=== PATIENT | female | born 1950 | race Caucasian/White ===

== ENCOUNTER 2025-04-23 10:28 | Emergency (ER) | payer MEDICARE, SELFPAY ==
--- NOTE | 2025-04-23 | ECG_ITS ---
Test Reason : FALL Blood Pressure : */* mmHG Vent. Rate : 74 BPM Atrial Rate : 74 BPM P-R Int : 158 ms QRS Dur : 82 ms QT Int : 398 ms P-R-T Axes : 66 63 70 degrees QTcB Int : 441 ms Normal sinus rhythm Septal infarct , age undetermined Abnormal ECG No previous ECGs available Referred By: Generic ED Physician Electronically Signed By: JANEEN LARKIN MD
--- NOTE | ~2025-04-23 | CT_ITS ---
EXAMINATION: CT CHEST WITH IV CONTRAST, CT ABDOMEN PELVIS WITH IV CONTRAST INDICATION: fall with chest trama, abdominal and back pain COMPARISON: There are no prior studies available for comparison.. TECHNIQUE: CT scan of the chest, abdomen and pelvis was performed following administration of 85 mL Omnipaque 350 using standard departmental protocol. Coronal and sagittal reformatted images were generated and reviewed. Oral contrast material was not administered at the request of the referring physician. This CT exam was performed with one or more of the following dose reduction techniques: automated exposure control, adjustment of the mA and/or kV according to patient size, use of iterative reconstruction technique. DLP: 475 mGy-cm CHEST: THYROID: The thyroid is unremarkable. LUNGS: There is mild dependent subsegmental atelectasis at the lung bases. The lungs are otherwise clear. MEDIASTINUM: There is no mediastinal lymphadenopathy. DAYANA: There is no hilar lymphadenopathy. CARDIOVASCULATURE: The heart is normal in size. There is no pericardial effusion. The thoracic aorta is normal in caliber. DEGREE OF CORONARY CALCIFICATION: not evaluable, due to dense contrast in the coronary arteries. PLEURA: There is no pleural effusion. No pneumothorax. MAIN AIRWAYS: The mainstem bronchi and proximal branches are patent. AXILLA: There is no axillary lymphadenopathy. SOFT TISSUES: Unremarkable. BONES: There are mild compression deformities involving T3 and T4 bodies, indeterminate age. ABDOMEN: LIVER: The liver is normal in size and contour. There is a 1.9 cm cyst in the left lobe. The hepatic and portal veins are patent. GALLBLADDER / BILE DUCTS: The gallbladder is unremarkable. There is no intra or extrahepatic biliary ductal dilatation. SPLEEN: The spleen is normal in size. No focal splenic lesion is identified. PANCREAS: The pancreas is unremarkable in appearance. ADRENAL GLANDS: Within normal limits. KIDNEYS/RETROPERITONEUM: No renal calculi are identified. There is no hydronephrosis. No renal masses are identified. LYMPH NODES: No abdominal or pelvic lymphadenopathy. VASCULATURE: MESENTERY/PERITONEUM: No free fluid. No masses. There is no free intraperitoneal gas. STOMACH: The stomach is collapsed, limiting evaluation. SMALL BOWEL: The small bowel is normal in caliber. COLON: There is a very large amount of stool throughout the colon. APPENDIX: The appendix is not seen, however no inflammatory changes are seen adjacent to the cecum. URINARY BLADDER/PELVIC ORGANS: The urinary bladder is unremarkable. The uterus is unremarkable. BONES / SOFT TISSUES: There are mild compression deformities of T11 and T12 which appear chronic. There is grade I spondylolisthesis of L4 on L5. CT/CT abdomen pelvis w IV con IMPRESSION: 1. No evidence of traumatic visceral injury to the chest, abdomen, or pelvis. 2. Mild compression deformities of T3 and T4, of indeterminate age. 3. Mild compression deformities of T11 and T12 which appear chronic. 4. Very large amount of stool throughout the colon. Electronically signed by: Asaf Chau MD 04/23/2025 01:00 PM EDT
--- NOTE | ~2025-04-23 | CT_ITS ---
EXAMINATION: CT HEAD WITHOUT CONTRAST CLINICAL INFORMATION: Head and neck pain after falling onto the head COMPARISON: None available. TECHNIQUE: Contiguous axial imaging was performed from the skull base to vertex without intravenous administration of contrast. This CT examination was performed using dose optimization techniques as appropriate, variously including the following: *Automated exposure control *Adjustment of mA and/or kV according to patient size (this includes techniques or standardized protocols for targeted exams where dose is matched to indication/reason for exam; i.e. extremities or head) *Use of iterative reconstruction technique DLP: 616 mGY*cm FINDINGS: There is no acute ischemic change. There is no intracranial hemorrhage. There is no mass-effect or midline shift. Basal cisterns and ventricles are within normal limits for age/cerebral volume. Orbits are symmetrical and unremarkable. Paranasal sinuses and mastoid air cells are pneumatized. There are no bony abnormalities. CT/CT head/brain wo IV con IMPRESSION: No acute intracranial abnormality. Electronically signed by: Fran Scanlon MD 04/23/2025 12:55 PM EDT
--- NOTE | ~2025-04-23 | CT_ITS ---
EXAMINATION: CT CERVICAL SPINE WITHOUT CONTRAST CLINICAL INFORMATION: Head and neck pain after falling onto the head COMPARISON: None available. TECHNIQUE: Axial imaging was performed from the base of the skull through T2 without IV contrast. Coronal and sagittal reformatted images were generated from the original axial data set. ALARA: The examination used one or more of the following radiation dose reduction techniques: Automated exposure control, iterative reconstruction, and/or adjustment of mA and/or KV. DLP: 184 mGY*cm FINDINGS: There is straightening of cervical lordosis. There is multilevel disc space narrowing with degenerative endplate irregularity with uncovertebral and facet osteophytes and sclerosis. There is nonsegmentation of left C2-3 facet joint. There is lucency through the posterior aspect of the transverse foramen on the right at C2 with sclerotic margins consistent with a chronic finding. Soft tissues and lung apexes are unremarkable. CT/CT cervical spine wo IV con IMPRESSION: No acute fracture. Degenerative disc disease with uncovertebral and facet osteoarthritis is most advanced at C4-5, C5-6, and C6-7. There is also straightening of cervical lordosis. Electronically signed by: Fran Scanlon MD 04/23/2025 01:00 PM EDT RP
[2025-04-23 10:38] VITALS: BP 158/100; PULSE 99; O2SAT 99
[2025-04-23 10:42] VITALS: BP 161/85; PULSE 89; RESP 14; TEMP 37.1; O2SAT 99; BMI 19.4
[2025-04-23 11:37] LABS: MANUAL DIFF FLAG NO
[2025-04-23 11:40] LABS: Hematocrit 39.6 % (37.0-47.0); Hemoglobin 13.6 g/dl (12.0-16.0); Imm Gran Abs Auto 0.06 X10*3/uL (0.00-0.03); Imm Gran Pct Auto 0.9 % (0.0-0.4); Lymphocytes Absolute Auto 1.1 X10*3/uL (1.2-4.9); Mean Corpuscular HGB Conc 34.3 g/dl (31.0-35.0); Mean Corpuscular Hemoglobin 29.4 pg (27.0-33.0); Mean Corpuscular Volume 85.5 fL (80.0-98.0); NRBC Abs Auto 0.000 X10*3/uL (0.0-0.012); NRBC Pct Auto 0.0 /100WBC (0.0-0.2); Platelet Count 312 X10*3/uL (160-400); Red Blood Count 4.63 X10*6/uL (4.20-5.50); White Blood Count 6.7 X10*3/uL (4.8-10.8)
--- NOTE | 2025-04-23 11:41 | ED.GENADULT ---
HPI - General Adult General Chief complaint: Fall Stated complaint: FALL,HIT HEAD,DIZZY,BACK PAIN PER EMS Time Seen by Provider: 04/23/25 10:52 Source: patient Mode of arrival: ambulatory Limitations: no limitations History of Present Illness ED Provider: ANNETTE Torres HPI narrative: 74-year-old female very active presents to the emergency department with complaints of neck, back, head pain patient reports she was doing yoga and got an episode of vertigo, she lost balance and landed right on her head. She thinks she fell to the side, when she fell she heard a loud crack in her neck and upper back. She also reports she has been having some chest discomfort and shortness of breath since this happened. She tells me she just does not feel right. She is very anxious about this. Denies fevers, chills, nausea, vomiting, abdominal pain, vision changes, dizziness and weakness no upper extremity clumsiness, numbness or tingling. Related Data Previous Rx's ?Medication ?Instructions ?Recorded acetaminophen 325 mg tablet 650 mg (2 x 325 mg) PO Q6H PRN 04/23/25 (Tylenol) fever or pain #30 tabs lidocaine 5 % topical patch 1 patch topical DAILY PRN pain #15 04/23/25 ea Allergies Allergy/AdvReac Type Severity Reaction Status Date / Time codeine AdvReac Mild Nausea Verified 04/23/25 10:46 Review of Systems Review of Systems: Yes all other systems are reviewed and are negative [facility] Past Medical History Attestation statement: The following information was validated with the patient. Source: old records reviewed and nursing notes reviewed Social History Social History Advance Directives: Yes Advance Directives Information Provided: Yes Advance Directives on File: No Physical Exam ED Exam Exam: Appearance: Alert.? Oriented X3.? No acute distress.? Head: Normocephalic, atraumatic, no step-offs or deformities Eyes: Pupils equal, round and reactive to light.? ENT: Pharynx normal.? Neck: Normal inspection.? Patient in cervical collar out of precaution. CVS: Normal heart rate and rhythm.? Pulses normal.? Respiratory: No respiratory distress.? Breath sounds normal.? Abdomen: Soft and nontender.? Skin: Skin warm and dry.? Normal skin color.? Normal skin turgor.? Extremities: No lower extremity edema.? No calf ttp. 5/5 strength to bilateral upper and lower extremities Back: No midline tenderness, no C-spine tenderness, full range of motion, no CVA tenderness bilaterally Neuro: Oriented X 3.? No motor deficit.? No sensory deficit. CN 2-12 intact Vital Signs: Vital Signs - 24 hr 04/23/25 10:42 04/23/25 14:05 Temperature 98.8 F Pulse Rate 89 92 Respiratory Rate 14 12 Blood Pressure 161/85 H 158/95 H Pulse Oximetry 99 99 Oxygen Delivery Method Room Air Room Air BMI result Body Mass Index 19.4 vss Course Reevaluation(s) Reevaluation #1: CBC unremarkable. Chemistry with no acute findings needing intervention. Troponin negative, EKG nonischemic. Patient's vertigo is being treated in the outpatient setting, she has refused meclizine and does not want any today. I do not suspect this is posterior infarct. Time: 15:34 Reevaluation #2: Patient's CT head no acute intracranial abnormality. CT cervical spine degenerative disease with facet joint arthritis. Nose advanced C4-C5, C5-C6 and C6-C7. No acute fracture. CT of the chest with mild compression deformities of T3 and T4 of indeterminate age likely acute. Mild compression of T11 and T12. No evidence of traumatic visceral injury to chest, abdomen or pelvis. Patient to be discharged home with Tylenol and Lidoderm patches. Will give her information on Interventional Radiology/Radiology for possible intervention such as kyphoplasty as these are acute in nature. No focal neurological deficits. Educated patient on diagnosis and treatment plan, answered all question, patient verbalizes understanding. At this time patient will be discharged home, advised to return with new or worsening symptoms. Educated on worrisome signs and symptoms and when to return. At this time I feel comfortable discharge home. Time: 15:34 Medical Decision Making Medical Decision Making MDM Narrative: 74-year-old female presents with fall status post bending forward and feeling like she had vertigo. No loss of consciousness. Not on blood thinners however reporting significant neck and upper back pain in the thoracic region. Reports she heard a crack. On exam patient in the neck immobilizer. No focal neurological deficits. Lung sounds clear. Regular rate and rhythm. Abdomen soft nontender nondistended. History and physical exam concerning for possible cervical spine or thoracic compression fractures. Unlikely intracranial hemorrhage, stroke, posterior stroke. Patient is being treated for vertigo outpatient this likely is the reason why patient fell, BPPV. Cerebellar infarct unlikely. Neurological function intact. NIH stroke scale 0. Will rule out traumatic injury to head, neck, chest, abdomen and pelvis. I do not suspect ACS, PE. Plan labs, imaging. Differential Diagnosis Differential Diagnoses: The differential diagnosis associated with the presentation includes (History and physical exam concerning for possible cervical spine or thoracic compression fractures. Unlikely intracranial hemorrhage, stroke, posterior stroke. Patient is being treated for vertigo outpatient this likely is the reason why patient fell, BPPV. Cerebellar infarct unlikely. Neurologi) Admission/Observation Consideration of admission/observation: Escalation of care including admission/observation considered Lab Data MDM Lab Attestation statement: I reviewed the patient's lab results. 04/23/25 11:32 04/23/25 11:32 Labs: Lab Results 04/23/25 04/23/25 Range/Units 11:32 14:05 WBC 6.7 (4.8-10.8) X10*3/uL RBC 4.63 (4.20-5.50) X10*6/uL Hgb 13.6 (12.0-16.0) g/dl Hct 39.6 (37.0-47.0) % MCV 85.5 (80.0-98.0) fL MCH 29.4 (27.0-33.0) pg MCHC 34.3 (31.0-35.0) g/dl RDW 14.2 (11.0-16.0) % Plt Count 312 (160-400) X10*3/uL MPV 8.2 L (9.4-12.3) fL Immature Gran % (Auto) 0.9 H (0.0-0.4) % Neut % (Auto) 74.8 H (45-73) % Lymph % (Auto) 16.0 L (20-40) % [place] % (Auto) 4.9 (2-11) % Eos % (Auto) 2.2 (0-4) % Baso % (Auto) 1.2 (0-2) % Lymph # (Auto) 1.1 L (1.2-4.9) X10*3/uL [place] # (Auto) 0.3 (0.1-1.2) X10*3/uL Eos # (Auto) 0.2 (0.0-0.4) X10*3/uL Baso # (Auto) 0.1 (0.0-0.2) X10*3/uL Abs Immat Gran (auto) 0.06 H (0.00-0.03) X10*3/uL Absolute Neuts (auto) 5.0 (2.0-8.3) x10*3/uL Absolute Nucleated RBC 0.000 (0.0-0.012) X10*3/uL Nucleated RBC % (auto) 0.0 (0.0-0.2) /100WBC PT 10.6 L (10.9-12.4) SEC INR 0.9 (0.9-1.1) Sodium 138 (135-145) mmol/L Potassium 3.9 (3.3-5.1) mmol/L Chloride 100 (96-108) mmol/L Carbon Dioxide 28 (22-29) mmol/L Anion Gap 14 (12-20) BUN 16 (9-16) mg/dL Creatinine 0.70 (0.5-1.4) mg/dL Estim Creat Clear Calc 52.6 Estimated GFR > 60 Random Glucose 103 (60-115) mg/dL Calcium 9.8 (8.4-10.2) mg/dL Total Bilirubin 0.5 (0.0-1.0) mg/dL Direct Bilirubin 0.1 (0.0-0.5) mg/dL AST 37 H (5-31) U/L ALT 28 (0-31) U/L Alkaline Phosphatase 57 (39-117) U/L Troponin I High Sens < 2.7 (<3.5-17.0) ng/L Total Protein 7.6 (6.5-8.0) g/dL Albumin 4.7 (3.5-5.0) g/dL Lipase 38 (8-78) U/L Urine Color Yellow Urine Appearance Clear Urine pH 7.5 (5.0-9.0) Ur Specific [place] >= 1.030 H (1.005-1.025) Urine Protein Negative (Neg-Trace) mg/dL Urine Glucose (UA) Negative (Negative) mg/dL Urine Ketones Negative (Negative) mg/dL Urine Blood Negative (Negative) Urine Nitrite Negative (Negative) Ur Leukocyte Esterase Negative (Negative) Independent Interpretation I performed an independent interpretation of an: EKG and CT Scan Radiology Impression Discussion of test interpretation with radiology: I have reviewed the radiologist's reading. External Record Review External record reviewed: Inpatient record, Office record, Outpatient record, Prior outpatient labs, Prior outpatient radiology, Primary care record and Outside ED record Critical Care Time Critical Care Time Critical Care Time: No Discharge Plan Discharge Clinical Impression: Concussion without loss of consciousness, Vertigo, Compression fracture of thoracic vertebra, Degenerative disc disease, cervical, Fall Patient Disposition: Home, Self-Care Instructions: Vertigo (ED), Dizziness (ED), Fall Prevention (ED) Additional Instructions: Take your medications as prescribed. If you were prescribed antibiotics today, it is important that you take your medication to their entirety, do not skip any doses, do not finish them early. Follow-up with your primary care provider this week. Return to the emergency department with new or worsening symptoms. Such as fevers, chills, chest pain, shortness of breath, nausea, vomiting, dizziness, headache, vision changes, lethargy In case of emergency call 911 Based off the type of fractures noted in your thoracic spine you may be eligible for procedure called kyphoplasty. This is done by an interventional radiologist, information below to call and make an appointment. CT/CT head/brain wo IV con IMPRESSION: No acute intracranial abnormality. CT/CT chest & abd w IV con IMPRESSION: 1. No evidence of traumatic visceral injury to the chest, abdomen, or pelvis. 2. Mild compression deformities of T3 and T4, of indeterminate age. 3. Mild compression deformities of T11 and T12 which appear chronic. 4. Very large amount of stool throughout the colon. CT/CT cervical spine wo IV con IMPRESSION: No acute fracture. Degenerative disc disease with uncovertebral and facet osteoarthritis is most advanced at C4-5, C5-6, and C6-7. There is also straightening of cervical lordosis. Prescriptions: New acetaminophen [Tylenol] 325 mg tablet 650 mg PO Q6H PRN (Reason: fever or pain) Qty: 30 0RF lidocaine 5 % adhesive patch,medicated 1 patch topical DAILY PRN (Reason: pain) Qty: 15 0RF Rx Instructions: leave on most painful area for up to 12 hrs Referrals: Issac Christensen MD [Physician, Interventional Radiology] Tyrese Gamez MD [Physician, Radiology] Stand Alone Forms: Work/School Release Print Language: Danish
[2025-04-23 11:43] LABS: INTERNATIONAL NORM RATIO 0.9 (0.9-1.1); Prothrombin Time 10.6 SEC (10.9-12.4)
[2025-04-23 11:56] LABS: Alanine Aminotransferase 28 U/L (0-31); Albumin Level 4.7 g/dL (3.5-5.0); Alkaline Phosphatase 57 U/L (39-117); Anion Gap 14 (12-20); Aspartate Amino Transferase 37 U/L (5-31); Blood Urea Nitrogen 16 mg/dL (9-16); Calcium 9.8 mg/dL (8.4-10.2); Carbon Dioxide 28 mmol/L (22-29); Chloride 100 mmol/L (96-108); Creatinine Clr Calc Pharmacy 52.6; Estimated Glomerular Filt Rate > 60; Lipase 38 U/L (8-78); Potassium 3.9 mmol/L (3.3-5.1); Sodium 138 mmol/L (135-145); Total Protein 7.6 g/dL (6.5-8.0)
[2025-04-23 12:07] LABS: Troponin-I High Sensitivity < 2.7 ng/L (<3.5-17.0)
--- NOTE | 2025-04-23 12:16 | PC.NURSE ---
18g IV access established to left AC. Labs drawn & sent for analysis. CT scans obtained, awaiting results. C-spine collar remains in place at this time. Care ongoing by this RN.
--- NOTE | 2025-04-23 13:09 | PC.NURSE ---
Cervical Collar removed by ANNETTE Torres.
[2025-04-23 14:05] VITALS: BP 158/95; PULSE 92; RESP 12; O2SAT 99
[2025-04-23 14:25] LABS: Appearance Urine Clear; Glucose Urine UA Negative (Negative); PH 7.5 (5.0-9.0); Specific Gravity - Urine >= 1.030 (1.005-1.025)
--- NOTE | 2025-04-23 15:15 | PC.NURSE ---
Patient ambulated with slow steady gait at 14:00, witnessed by this RN. Voided in toilet, urine specimen was collected and sent at that time. Awaiting update from provider. [employer] message sent to ANNETTE Lincoln.
--- NOTE | 2025-04-23 15:36 | PC.NURSE ---
ANNETTE Torres at bedside reviewing results with the patient. Plan for discharge.
[2025-04-23 15:54] VITALS: BP 150/80; PULSE 80; RESP 15; TEMP 36.6; O2SAT 99
[2025-04-23 16:29] VITALS: BP 150/80; PULSE 80; RESP 15; TEMP 36.6; O2SAT 99
== END 2025-04-23 16:29 | disposition home or self-care (01) ==
PROVIDERS: Physician Assistant; Emergency Provider Emergency Medicine; PCP Physician Assistant Medical
DX: S06.0X0A Concussion without loss of consciousness, initial encounter (principal); M50.30 Other cervical disc degeneration, unspecified cervical region; R42 Dizziness and giddiness; M48.54XA Collapsed vertebra, not elsewhere classified, thoracic region, initial encounter for fracture; W18.39XA Other fall on same level, initial encounter; Y93.42 Activity, yoga; Y92.89 Other specified places as the place of occurrence of the external cause; Y99.8 Other external cause status
CPT/HCPCS: 36415; 70450; 71260; 72125; 74177; 80053; 81003; 82248; 83690; 84484; 85025; 85610; 93005; 96374; 99284; J1885

== ENCOUNTER → 2025-04-23 10:51 | Outpatient (BNV) | payer MEDICARE, SELFPAY | PROVIDERS: Emergency Provider Emergency Medicine; PCP Physician Assistant Medical; Visit Provider Radiology Diagnostic Radiology | DX: R10.9 Unspecified abdominal pain (principal); R07.89 Other chest pain; W19.XXXA Unspecified fall, initial encounter | CPT/HCPCS: 71260; 74177 ==

== ENCOUNTER → 2025-04-23 11:38 | Outpatient (BNV) | payer MEDICARE, SELFPAY | PROVIDERS: Emergency Provider Emergency Medicine; PCP Physician Assistant Medical; Visit Provider Internal Medicine Cardiovascular Disease | DX: R94.31 Abnormal electrocardiogram [ECG] [EKG] (principal); R42 Dizziness and giddiness; M54.9 Dorsalgia, unspecified; W19.XXXA Unspecified fall, initial encounter | CPT/HCPCS: 93010 ==